=== PATIENT | male | born 1995 | race Caucasian/White ===

== ENCOUNTER 2021-03-05 17:16 | Emergency (ER) | payer SELFPAY ==
[~2021-03-05] VITALS: Ht 172.7 cm; Wt 59.3 kg
[2021-03-05 17:42] VITALS: BP 124/78
== END 2021-03-05 18:29 | disposition left against medical advice (07) ==
LOC: ER 17:17
DX: J02.9 Acute pharyngitis, unspecified (principal); Z53.21 Procedure and treatment not carried out due to patient leaving prior to being seen by health care provider